=== PATIENT | female | born 1990 | race Caucasian/White ===

== ENCOUNTER 2020-07-10 11:44 | Outpatient (REF) | payer OTHER, SELFPAY | END 2020-07-10 11:45 | disposition home or self-care (01) | LOC: HO.LAB 11:44 | PROVIDERS: PCP Registered Nurse; Visit Provider Registered Nurse | DX: Z20.828 Contact with and (suspected) exposure to other viral communicable diseases (principal) | CPT/HCPCS: C9803; U0003 ==

== ENCOUNTER 2020-07-27 12:42 | Outpatient (REF) | payer OTHER, SELFPAY | END 2020-07-27 12:43 | disposition home or self-care (01) | LOC: HO.LAB 12:42 | PROVIDERS: Visit Provider Internal Medicine | DX: Z20.828 Contact with and (suspected) exposure to other viral communicable diseases (principal) | CPT/HCPCS: C9803; U0003 ==

== ENCOUNTER 2020-09-03 09:24 | Outpatient (REF) | payer OTHER, SELFPAY | END 2020-09-03 09:25 | disposition home or self-care (01) | LOC: HO.LAB 09:24 | PROVIDERS: Visit Provider Internal Medicine | DX: Z20.822 Contact with and (suspected) exposure to COVID-19 (principal) | CPT/HCPCS: 36415; C9803; U0003 ==

== ENCOUNTER 2021-01-05 00:38 | Emergency (ER) | payer OTHER, SELFPAY ==
[2021-01-05 01:16] VITALS: BP 120/76; BP 142/86; PULSE 89; PULSE 96; RESP 20; TEMP 36.4; O2SAT 98; BMI 19.9
--- NOTE | 2021-01-05 01:21 | PC.NURSE ---
Pt belongings in locker 8
[2021-01-05 01:53] LABS: Amphetamine Screen Urine Not Detected (Not Detect); Barbiturates, Urine Not Detected (Not Detect); Benzodiazepines Screen Urine Not Detected (Not Detect); Cannabinoid Screen Urine POSITIVE (Not Detect); Cocaine Screen Urine POSITIVE (Not Detect); Opiate Screen Urine Not Detected (Not Detect); Phencyclidine Screen Urine Not Detected (Not Detect)
--- NOTE | 2021-01-05 02:03 | ED.PSYCH ---
HPI - Psych General Chief Complaint: Psychiatric Symptoms Stated Complaint: crisis Time Seen by Provider: 01/05/21 00:43 Source: patient and EMS Mode of arrival: EMS History of Present Illness HPI Narrative: 30-year-old female with a past medical history of substance abuse, on Suboxone, presenting to the ED requesting detox/stating she is having difficult time/mental breakdown with crack cocaine addiction and daughter who was just recently taken from her custody. Made comment that her daughter would be better off without her which prompted her mother to call EMS. Denies SI/HI, reports she would never hurt herself or others. Denies other illicit drugs or EtOH, trauma/injury, CP/SOB, abdominal pain, nausea/vomiting MD complaint: feels depressed and substance abuse Related Data Allergies Allergy/AdvReac Type Severity Reaction Status Date / Time dicyclomine [DICYCLOMINE] Allergy Unknown STOMACH Unverified 05/17/20 15:57 UPSET Review of Systems Review of Systems: Constitutional: No Fever, No Chills ENT/Mouth: No Hearing loss, No Ear Pain, No Nasal Congestion, No Sinus Pain, No Hoarseness, No sore throat, No Rhinorrhea, No Swallowing Difficulty Eyes: No Eye Pain, No Swelling, No Redness, No Foreign Body, No Discharge, No Vision Changes Cardiovascular: No Chest Pain, No SOB, No Dyspnea on Exertion, No Orthopnea, No Edema, No Palpitations Respiratory: No Cough, No Sputum, No Wheezing, No Smoke Exposure, No Dyspnea Gastrointestinal: No Nausea, No Vomiting, No Diarrhea, No Constipation, No Abdominal pain, No Hematochezia, No Melena Genitourinary: No irregular bleeding, No Dysuria, No Urinary Frequency, No Hematuria, Musculoskeletal: No joint pain, No Myalgias, No Joint Swelling Skin: No Skin Lesions, No rash Neuro: No Weakness, No Numbness, No Paresthesias, No Loss of Consciousness, No Dizziness, No Headache Psych: No Anxiety/Panic, No Depression, No SI/HI/AH/VH, No Social Issues Yes all other systems are reviewed and are negative [facility] Past Medical History Attestation statement: The following information was validated with the patient. Social History Social History Alcohol intake: never Use of substances other than those prescribed or required for medical reasons: Yes Substance Use Type: Crack/Cocaine Advance Directives: No Advance Directives Information Provided: No Physical Exam Vital Signs: Vital Signs: Last Vital Signs Temp 97.6 F 01/05/21 01:16 Pulse 89 01/05/21 01:16 Resp 20 01/05/21 01:16 BP 120/76 01/05/21 01:16 Pulse Ox 98 01/05/21 01:16 Body Mass Index 19.9 Const: General: cooperative, comfortable and no acute distress Orientation/consciousness: patient oriented x3 Limitations: no limitations HENMT: Head: Yes normal to inspection Ears: hearing grossly normal bilaterally General nose exam: Normal external nose present Face and sinus: Yes normal facial exam Eyes: General: appearance normal, both eyes and all related structures EOM: EOMs intact bilaterally Neck: Neck: Yes normal visual inspection Resp: Effort & Inspection: normal respiratory effort Auscultation: clear to auscultation bilaterally, no rales, no rhonchi and no wheezes Cardio: Rate: regular rate Heart sounds: S1 normal heart sound present and S2 normal heart sound present GI: Inspection: Yes normal to inspection Skin: Rashes: no rashes Wounds: no wounds Neuro: General: patient oriented x3 Extrem: General: Yes normal to inspection Psych: Appearance: grossly normal Affect: Sad affect present Thought process: Normal thought process present Thought content: suicidality and no homicidality Insight: Good insight present (Psych) Course Course Course Narrative: -tox screen positive for cocaine and THC -021--care team spoke with patient, patient reports she would like to go to [facility] in [place] on Thursday as would like to spend Mother's Day with her daughter. Patient will call for a ride to pick her up from ED -[id number]-- ED care transferred to Dr. Ramirez pending patient getting a safe ride home MDM - Psych MDM Narrative Medical decision making narrative: 30-year-old female with a past medical history of substance abuse, on Suboxone, presenting to the ED requesting detox/stating she is having difficult time/mental breakdown with crack cocaine addiction and daughter who was just recently taken from her custody. On exam VSS, NAD, tearful, cooperative, denies SI/HI. Plan: With care team speak with patient about detox, NASH Lab Data Labs: Lab Results 01/05/21 Range/Units 01:22 Urine Opiates Screen Not Detected (Not Detect) Ur Barbiturates Screen Not Detected (Not Detect) Ur Phencyclidine Scrn Not Detected (Not Detect) Ur Amphetamines Screen Not Detected (Not Detect) U Benzodiazepines Scrn Not Detected (Not Detect) Urine Cocaine Screen POSITIVE H (Not Detect) U Marijuana (THC) Screen POSITIVE H (Not Detect) Discharge Plan Discharge Clinical Impression: Substance abuse Instructions: Polysubstance Abuse (ED) Additional Instructions: go to detox dont do drugs they can kill you Referrals: [facility] [Physician] - 2 days
--- NOTE | 2021-01-05 02:18 | MHC.CARE ---
CARE Team meets with patient at the request of ELICIA Wells, as pt is seeking detox. Pt states that she has been to [facility] in the past and she would like to return there. CARE Team offers support to pt during this process, and pt voices feeling that she can self refer. Pt is encouraged to reach out to CARE Team or come back to ED if she does need help connecting with substance use resources. Pt states that she will go to detox on Thursday after spending mother's day with her daughter. Plan is communicated to ELICIA Wells who states that pt is ready for d/c pending a safe ride home. CARE Team phone is provided to pt to call for a ride.
== END 2021-01-05 02:48 | disposition home or self-care (01) ==
PROVIDERS: Physician Assistant; Emergency Provider Student in an Organized Health Care Education/Training Program
DX: F14.10 Cocaine abuse, uncomplicated (principal); F11.20 Opioid dependence, uncomplicated
CPT/HCPCS: 80307; 99285

== ENCOUNTER 2021-02-28 15:53 | Emergency (ER) | payer OTHER, SELFPAY ==
[2021-02-28 15:57] VITALS: BP 127/83; PULSE 100; RESP 16; TEMP 36.7; O2SAT 99; BMI 18.8
--- NOTE | 2021-02-28 16:57 | ED.GENADULT ---
HPI - General Adult General Chief complaint: General Medical Stated complaint: Crisis Time Seen by Provider: 02/28/21 16:49 Source: patient Mode of arrival: EMS Limitations: no limitations History of Present Illness HPI narrative: 30-year-old female with a past medical history of substance abuse, on Suboxone, just got out of [facility] a few weeks ago presenting to the ED requesting detox/stating she is having difficult time/mental breakdown with crack cocaine addiction and her mother is making it worse for her. She adamently refuses any suicidal ideations or homicidal ideations. She states she wants to live because she has a daughter she wants to get custody back. Denies other illicit drugs or EtOH, trauma/injury, nvd, cp or sob. she states she does want to enter a rehab tonight and when she gets home she is going to make phone calls, she has her cousin for support, she states they are going to go eat dinner and then go home and start making call so she can find a place to enter. She states she has not happy living at her mother's house because of a conflict and her mom makes her feel bad for her drug addiction. Related Data Allergies Allergy/AdvReac Type Severity Reaction Status Date / Time dicyclomine [DICYCLOMINE] Allergy Unknown STOMACH Unverified 05/17/20 15:57 UPSET Review of Systems Review of Systems: Yes all other systems are reviewed and are negative PMFSH Past Medical History Medical History Substance abuse Social History Social History Alcohol intake: never Substance Use Type: Crack/Cocaine Advance Directives: No Advance Directives Information Provided: Yes Patient : No Physical Exam Vital Signs: Vital Signs: Last Vital Signs Temp 98.0 F 02/28/21 15:57 Pulse 100 02/28/21 15:57 Resp 16 02/28/21 15:57 BP 127/83 02/28/21 15:57 Pulse Ox 99 02/28/21 15:57 Body Mass Index 18.8 Const: General: cooperative, comfortable, no acute distress, poor hygiene and tired appearing Nutritional Appearance: thin Orientation/consciousness: patient oriented x3 HENMT: Head: Yes normal to inspection, Yes No palpable skull fracture present, Yes normocephalic and Yes atraumatic Ears: hearing grossly normal bilaterally General nose exam: Normal external nose present Face and sinus: Yes normal facial exam Eyes: General: appearance normal, both eyes and all related structures Resp: Effort & Inspection: normal respiratory effort and able to speak in complete sentences Neuro: General: patient oriented x3 Extrem: General: Yes normal to inspection Psych: Appearance: grossly normal Speech and movement: Normal speech and movement present Affect: normal affect Attitude: cooperative Thought process: Normal thought process present Thought content: Normal thought content present, suicidality and no homicidality Insight: Fair insight present (Psych) Judgement: Fair judgement present (Psych) Course Course Course Narrative: 30-year-old female with a past medical history of substance abuse, on Suboxone, just got out of [facility] a few weeks ago presenting to the ED requesting detox. VSS, PE unremarkable. Pt very calm, knows she needs to go to detox but wants to do it on her own, she has a list at home already. Denies SI/ HI, no physical complaints, will discharge patient, provided list of detox places. there is no reason for us to section her at this time. Discharge Plan Discharge Clinical Impression: Drug addiction Patient Disposition: Home, Self-Care Instructions: Polysubstance Abuse (ED) Additional Instructions: As discussed, I have provided you with a list of detox places in the area. As you stated, please go home and start calling to find a place that has a bed for you. If you need help with this or you cannot find a detox its location, please come back to the ED and we will assist you. I have provided you with a take home Narcan, please have your friends and family learn how to use it, just in case. Good luck to you.
[2021-02-28] MEDS: Naloxone HCl Nasal TAKE HOME 4 MG SPRAY NOSTRILALT (17:29)
== END 2021-02-28 17:30 | disposition home or self-care (01) ==
PROVIDERS: Emergency Provider Emergency Medicine Emergency Medical Services
DX: F14.20 Cocaine dependence, uncomplicated (principal)
CPT/HCPCS: 99283; 99284

== ENCOUNTER 2022-09-27 11:03 | Emergency (ER) | payer OTHER, SELFPAY ==
[2022-09-27 11:12] VITALS: BP 116/75; PULSE 100; RESP 20; TEMP 36.7; O2SAT 97; BMI 22.3
--- NOTE | 2022-09-27 11:13 | ED_ITS ---
HPI - General Adult General Chief complaint: Skin/Abscess/Foreign Body Stated complaint: cyst on vaginal area Time Seen by Provider: 09/27/22 12:20 Source: patient Mode of arrival: ambulatory Limitations: no limitations History of Present Illness HPI narrative: Patient is a 31 year old assigned female at with no reported medical history presenting to the emergency department today with a vaginal cyst, left sided facial swelling, and requesting STI testing. Patient states that she has a vaginal cyst that she has popped but it has come back larger. Patient states that the left side of her face has also been swollen lately because she has a broken tooth on that side. Patient also states that she would like to be tested and treated for possible STIs. Patient denies any dizziness, lightheadedness, abdominal pain, nausea, vomiting, fever, chills, blurry vision, double vision, loss of vision, chest pain, difficulty breathing, shortness of breath, back pain, night sweats, pain with urination, increased urinary frequency, increased urinary urgency, blood in her urine or stool, syncope or a near syncopal episode, recent trauma or falls, bowel incontinence, bladder incontinence, bowel retention, bladder retention, or any other complaints at this time. Onset (ago): day(s) Severity: mild Severity scale (1-10): 2 Relieving factors: none Exacerbating factors: none Associated symptoms: denies other symptoms Treatments prior to arrival: none Related Data Previous Rx's Medication Instructions Recorded doxycycline hyclate 100 mg tablet 100 mg PO BID 7 days #14 tabs 09/27/22 Allergies Allergy/AdvReac Type Severity Reaction Status Date / Time dicyclomine [DICYCLOMINE] Allergy Unknown STOMACH Unverified 05/17/20 15:57 UPSET Review of Systems Constitutional: Constitutional: Reports no additional constitutional complaints, Denies chills, Denies fever(s) and Denies night sweats Eyes: Eyes: Reports no additional eye complaints, Denies blurry vision, Denies change in vision, Denies diplopia, Denies eye discharge, Denies loss of vision and Denies eye pain ENT: Denies dizziness and Reports mouth pain Cardiovascular: Cardiovascular: Reports no additional cardiovascular complaints, Denies chest pain, Denies lightheadedness, Denies Loss of Consciousness and Denies dyspnea Respiratory: Respiratory: Reports no additional respiratory complaints and Denies dyspnea Gastrointestinal: Gastrointestinal: Reports no additional gastrointestinal complaints, Denies abdominal pain, Denies melena, Denies hematochezia, Denies change in bowel habits and Denies change in stool character Genitourinary: Genitourinary: Denies hematuria, Denies urinary frequency, Denies dysuria, Denies urinary incontinence, Denies urinary hesitancy and Denies urinary urgency Comments: vaginal cyst Musculoskeletal: Musculoskeletal: Reports no additional musculoskeletal complaints, Denies numbness and Denies tingling Neurologic: Denies dizziness, Denies loss of vision, Denies numbness and Denies tingling Psychiatric: Psychiatric: Reports no additional psychiatric complaints Endocrine: Endocrine: Reports no additional endocrine complaints Hematologic/Lymphatic: Hematologic/Lymphatic: Reports no additional hematologic/lymphatic complaints Allergic/Immunologic: Allergic/Immunologic: Reports no additional allergic/immunologic complaints PMFSH Past Medical History Attestation statement: The following information was validated with the patient. Source: old records reviewed and nursing notes reviewed Medical History Substance abuse Social History Social History Alcohol intake: never Substance Use Type: Crack/Cocaine Advance Directives: No Physical Exam ED Vital Signs: Vital Signs - 24 hr 09/27/22 11:12 Temperature 98.1 F Pulse Rate 100 Respiratory Rate 20 Blood Pressure 116/75 Pulse Oximetry 97 Oxygen Delivery Method Room Air BMI result Body Mass Index 22.3 Const General: cooperative, no acute distress, alert and awake Nutritional Appearance: well nourished Orientation/consciousness: patient oriented x3 Limitations: no limitations [facility] Head: Yes atraumatic Ears: hearing grossly normal bilaterally and external ears normal General nose exam: Normal external nose present, no nasal discharge noted and no epistaxis Face and sinus: No abrasion and No laceration Mouth: Normal oral and palatal mucosa present, no drooling and no muffled voice Teeth and gingiva: poor dentition and other (mild left sided cheek swelling) Eyes General: appearance normal, both eyes and all related structures Periorbital: periorbital findings normal Eyelids: Yes eyelids normal Conjunctivae: conjunctivae normal Pupils: Equal, round and reactive pupils present EOM: EOMs intact bilaterally Neck Neck: Yes normal visual inspection, Yes full ROM and Yes no lymphadenopathy Chest Chest palpation & inspection: normal inspection of the chest Resp Effort & Inspection: normal respiratory effort and able to speak in complete sentences Auscultation: clear to auscultation bilaterally Cardio Rate: regular rate Rhythm: regular rhythm GI Inspection: Yes normal to inspection Neuro General: patient oriented x3 and moves all extremities Cranial nerves: Yes Equal, round and reactive pupils present Cognition (Neuro): normal cognition Motor exam (neuro): 5/5 motor strength present throughout Sensory Exam: Normal double simultaneous stimulation for sensation Coordination: [id number] test normal Extrem General: Yes normal to inspection, Yes full ROM and Yes capillary refill normal Psych Appearance: grossly normal Mental Status: mental status grossly normal Affect: normal affect Attitude: cooperative Thought process: Normal thought process present Thought content: Normal thought content present Insight: Good insight present (Psych) Course Course Course Narrative: RME performed by Karyn Miguel PA-C. Patient is a 31 year old female presenting to the emergency department with a vaginal cyst. Patient states that she would like to be tested for STD as well. Patient placed back in the waiting room pending room availability. Medications Administered Discontinued Medications Generic Name Dose Route Start Last Admin Trade Name Yimiq PRN Reason Stop Dose Admin Ceftriaxone Sodium 500 mg/ 0 mg 09/27/22 11:16 09/27/22 12:29 Lidocaine HCl 1 ml IM 09/27/22 11:17 1 kit ONCE ONE Administration Medical Decision Making Medical Decision Making [facility] Narrative: Patient is a 31 year old assigned female at with no reported medical history presenting to the emergency department today with a vaginal cyst, left sided facial swelling, and requesting STI testing. Patient's initial physical exam showed poor dentition with mild swelling to the left side of her face but was otherwise unremarkable. Patient was immediately given IM Rocephin for STI prophylaxis. Patient was escorted to an examination room and requested to foreign exchange dealer into a gown for a proper examination of the vaginal cyst when she eloped from the department. Patient did not provide a urine sample. Patient did not allow for me to properly exam the vaginal cyst as she eloped from the department. I sent in PO Doxycycline to her preferred pharmacy to complete the STI prophylaxis treatment. Differential Diagnosis Differential Diagnoses: The differential diagnosis associated with the presentation includes vaginal cyst, STI exposure Discharge Plan Discharge Clinical Impression: STI (sexually transmitted infection) Patient Disposition: Elopement Prescriptions: New doxycycline hyclate 100 mg tablet 100 mg PO BID 7 Days Qty: 14 0RF Discharge Date/Time: 09/27/22 12:58
[2022-09-27] MEDS: cefTRIAXone sodium 500 MG, Lidocaine HCl 1 % MPF 1 ML IM (12:29)
== END 2022-09-27 12:58 | disposition left against medical advice (07) ==
PROVIDERS: Emergency Provider Emergency Medicine; PCP Registered Nurse
DX: Z20.2 Contact with and (suspected) exposure to infections with a predominantly sexual mode of transmission (principal); F19.10 Other psychoactive substance abuse, uncomplicated
CPT/HCPCS: 96372; 99281; 99284; J0696